=== PATIENT | female | born 1955 | race Caucasian/White ===

== ENCOUNTER 2019-10-18 02:01 | Emergency (ER) | payer OTHER ==
[~2019-10-18] VITALS: Ht 160 cm; Wt 68.2 kg
[2019-10-18] MEDS ORDERED: ZOLOFT 50MG50 MG PO (02:26)
[2019-10-18] MEDS ORDERED: AMBIEN10 MG PO (02:26)
[2019-10-18] MEDS ORDERED: LIPOFEN50 M1 PO (02:49)
[2019-10-18] MEDS ORDERED: FOSAMAX 70MG TA70 MG PO (02:50)
[2019-10-18 03:29] LABS: BASO # 0.1 (0.02-0.10); EOS # 0.2 (0.04-0.40); EOS % 1.7 % (1.0-5.0); HEMATOCRIT 43.6 % (37.0-47.0); HEMOGLOBIN 14.1 g/dL (12.5-16.0); LYMPH# 2.4 (1.50-4.00); MEAN CELL VOLUME 92 fl (78-100); MEAN CORPUSCULAR HEMOGLOBIN 30 pg (27-31); MEAN CORPUSCULAR HGB CONC 32 g/dL (33-37); MEAN PLATELET VOLUME 11.8 fl (7.4-10.4); MONO # 0.9 (0.20-0.80); NEU # 7.1 (1.40-6.50); PLATELET COUNT 390 K/mm3 (130-400); RED BLOOD COUNT 4.76 M/mm3 (4.10-5.30); RED CELL DISTRIBUTION WIDTH 13.2 % (11.5-14.5); WHITE BLOOD COUNT 10.6 K/mm3 (4.8-10.8)
[2019-10-18 03:43] LABS: ALBUMIN 4.4 g/dL (3.4-4.8)
[2019-10-18 03:44] LABS: POTASSIUM 3.7 mmol/L (3.5-5.1)
[2019-10-18 03:45] LABS: CALCIUM 9.9 mg/dL (8.3-10.5)
[2019-10-18 03:46] LABS: TOTAL PROTEIN 8.4 g/dL (6.2-8.1)
[2019-10-18 03:46] LABS: PH-URINE 5.5 (5.0 - 8.0); URINE APPEARANCE CLEAR; URINE BILIRUBIN NEGATIVE (NEGATIVE); URINE BLOOD TRACE (NEGATIVE); URINE COLOR YELLOW; URINE GLUCOSE NEGATIVE (NEGATIVE); URINE KETONE NEGATIVE (NEGATIVE); URINE LEUKOCYTE ESTERASE TRACE (NEGATIVE); URINE NITRATE NEGATIVE (NEGATIVE); URINE PROTEIN(semi-quant) NEGATIVE (NEGATIVE); URINE UROBILINOGEN NORMAL (NORMAL)
[2019-10-18 03:48] LABS: TOTAL BILIRUBIN 0.3 mg/dL (0.2-1.2)
[2019-10-18 04:30] VITALS: BP 165/96
== END 2019-10-18 04:30 | disposition home or self-care (01) ==
LOC: ED 02:01
PROVIDERS: Family Medicine
DX: F43.9 Reaction to severe stress, unspecified (principal); F44.0 Dissociative amnesia; F41.8 Other specified anxiety disorders; G47.00 Insomnia, unspecified